=== PATIENT | male | born 1945 | race Caucasian/White ===

== ENCOUNTER 2017-01-11 11:14 | Inpatient (IN) | payer OTHER ==
[2017-01-11] VITALS (9 sets, daily range): BP systolic 114–173; BP diastolic 64–81
[~2017-01-11] VITALS: Ht 175.3 cm; Wt 96.2 kg
[~2017-01-11 11:14] MED LIST: HYDROCHLOROTHIA25 MG PO; IRON325 M1 PO; LOPRESSOR100 M1 PO; OMEPRAZOLE40 M1 PO; ROBITUSSIN AC,T10 ML PO; SIMVASTATIN10 MG PO; TYLENOL REGULA325 MG PO; ZITHROMAX Z-PA250 MG PO
[2017-01-11 12:36] LABS: EOSINOPHIL (%) 0.6 % (0-5); HEMATOCRIT 27.9 % (38.0-50.0); IMMATURE GRANULOCYTE (%) 0.6 % (0.0-0.7); INSTRUMENT ABS NEUTROPHIL CT 2.9 K/uL; LYMPHOCYTE COUNT 0.6 K/uL (1.0-2.8); MCH 30.7 PG (29.0-34.0); MCHC 31.5 G/DL (30.0-36.0); MCV 97.2 FL (86-99); MEAN PLAT.VOLUME 13.7 uM^3 (9.0-12.4); MONOCYTE (%) 1.7 % (3-12); MONOCYTE COUNT 0.1 K/uL (0-0.8); NEUTROPHIL (%) 79.2 % (45-76); NEUTROPHIL COUNT 2.9 K/uL (1.8-6.4); NRBC (%) 0.6 /100 WBC (0-0); RBC DIS.WIDTH-CV 16.4 % (11.8-14.6); RBC DIS.WIDTH-SD 58.8 % (39-53); RED BLOOD COUNT 2.87 M/uL (4.00-5.50); WHITE BLOOD COUNT 3.6 K/uL (4.1-10.2)
[2017-01-11 12:37] LABS: PLATELET COUNT 88 K/uL (156-360)
[2017-01-11 12:39] LABS: INTER. NORMALIZED RATIO 1.2; PROTHROMBIN TIME 13.3 SEC (10.2-12.9)
[2017-01-11 12:42] LABS: PTT 24.5 SEC (25-37)
[2017-01-11 13:31] LABS: CHLORIDE 103 mEq/L (99-109); POTASSIUM 3.7 mEq/L (3.7-5.4); SODIUM 138 mEq/L (136-147)
[2017-01-11 13:33] LABS: GLUCOSE 81 mg/dL (70-99)
[2017-01-11 13:34] LABS: ANION GAP 10 MEQ/L (2-14)
[2017-01-11 13:35] LABS: TOTAL BILIRUBIN 0.7 mg/dL (0.0-1.0)
[2017-01-11 13:36] LABS: ALKALINE PHOSPHATASE 88 IU/L (3-129)
[2017-01-11 13:37] LABS: GFR ESTIMATE (CALCULATED) > 59 mL/min/
[2017-01-11 13:38] LABS: UREA NITROGEN (BUN) 23 mg/dL (9-23)
[2017-01-11] MEDS ORDERED: AMLODIPINE BESYL5 MG PO (16:19)
[2017-01-11] MEDS ORDERED: MICRO-K10 ME2 PO (16:19)
[2017-01-11] MEDS ORDERED: FUROSEMIDE20 MG PO (16:20)
[2017-01-11] MEDS ORDERED: XARELTO20 MG PO (16:21)
[2017-01-11] MEDS ORDERED: CAMPTOSAR40 MG/2 ML IV (16:27)
[2017-01-11] MEDS ORDERED: TAXOTERE20 MG/1 ML IV ×2 (16:27→16:29)
[2017-01-12] VITALS (10 sets, daily range): BP systolic 115–161; BP diastolic 65–78
[2017-01-12 06:29] LABS: HEMATOCRIT 31.8 % (38.0-50.0); MCH 29.8 PG (29.0-34.0); MCHC 32.1 G/DL (30.0-36.0); PLATELET COUNT 64 K/uL (156-360); RBC DIS.WIDTH-CV 16.7 % (11.8-14.6); RBC DIS.WIDTH-SD 55.5 % (39-53); RED BLOOD COUNT 3.42 M/uL (4.00-5.50); WHITE BLOOD COUNT 2.6 K/uL (4.1-10.2)
[2017-01-12 06:38] LABS: CHLORIDE 106 mEq/L (99-109); POTASSIUM 3.8 mEq/L (3.7-5.4); SODIUM 142 mEq/L (136-147)
[2017-01-12 06:40] LABS: GLUCOSE 98 mg/dL (70-99)
[2017-01-12 06:41] LABS: ANION GAP 11 MEQ/L (2-14)
[2017-01-12 06:43] LABS: GFR ESTIMATE (CALCULATED) > 59 mL/min/
[2017-01-12 06:44] LABS: UREA NITROGEN (BUN) 17 mg/dL (9-23)
[2017-01-12 19:49] LABS: HEMATOCRIT 32.8 % (38.0-50.0); MCV 93.4 FL (86-99)
[2017-01-13] VITALS (7 sets, daily range): BP systolic 124–151; BP diastolic 59–79
[2017-01-13 06:15] LABS: HEMATOCRIT 30.9 % (38.0-50.0); MCH 30.5 PG (29.0-34.0); MCHC 32.7 G/DL (30.0-36.0); MCV 93.4 FL (86-99); MEAN PLAT.VOLUME 14.4 uM^3 (9.0-12.4); PLATELET COUNT 52 K/uL (156-360); RBC DIS.WIDTH-CV 16.6 % (11.8-14.6); RBC DIS.WIDTH-SD 56.5 % (39-53); RED BLOOD COUNT 3.31 M/uL (4.00-5.50)
[2017-01-13 06:39] LABS: ANION GAP 8 MEQ/L (2-14); CHLORIDE 105 MEQ/L (99-109); GFR ESTIMATE (CALCULATED) > 59 mL/min/; GLUCOSE 100 mg/dL (70-99); POTASSIUM 3.7 MEQ/L (3.7-5.4); SAMPLE HEMOLYSIS CHECK 0; SAMPLE ICTERIC CHECK 0; SAMPLE LIPEMIA CHECK 0; SODIUM 139 MEQ/L (136-147); UREA NITROGEN (BUN) 16 mg/dL (9-23)
[2017-01-13 06:46] LABS: ABS NEUTROPHIL COUNT 0.8; ATYPICAL LYMPHOCYTE 7.9 %; BAND NEUTROPHILS 0.9 % (0-8.0); EOSINOPHIL ABS CT 0; EOSINOPHILS 0.9 % (0-5.0); INSTRUMENT ABS NEUTROPHIL CT 0.7 K/uL; LYMPHOCYTES 18.6 % (15.0-45.0); MYELOCYTES 0.9 %; NUCLEATED RBC'S 0.9
[2017-01-13 07:00] LABS: WHITE BLOOD COUNT 1.1 K/uL (4.1-10.2)
[2017-01-13 12:40] LABS: ADD MIUA? NO; BILIRUBIN NEGATIVE; BLOOD NEGATIVE; COLOR YELLOW ((YELLOW)); GLUCOSE (STRIP) NEGATIVE; KETONES NEGATIVE; LEUKOCYTES NEGATIVE; NITRITE NEGATIVE; PROTEIN (STRIP) NEGATIVE; SPECIFIC GRAVITY 1.014 (1.000-1.030); UCUL ADDED? NO; UROBILINOGEN 0.2 MG/DL (0.2-1.0)
[2017-01-13 20:00] LABS: MCV 92.3 FL (86-99)
[2017-01-14 04:05] VITALS: BP 128/60
[2017-01-14 06:40] VITALS: BP 147/71
[2017-01-14 09:13] LABS: HEMATOCRIT 31.8 % (38.0-50.0); MCH 29.6 PG (29.0-34.0); MCHC 31.8 G/DL (30.0-36.0); MCV 93.3 FL (86-99); MEAN PLAT.VOLUME 12.7 uM^3 (9.0-12.4); PLATELET COUNT 58 K/uL (156-360); RBC DIS.WIDTH-CV 15.9 % (11.8-14.6); RBC DIS.WIDTH-SD 54.4 % (39-53); RED BLOOD COUNT 3.41 M/uL (4.00-5.50)
[2017-01-14 09:30] LABS: WHITE BLOOD COUNT 1.4 K/uL (4.1-10.2)
[2017-01-14] MEDS ORDERED: XARELTO20 MG PO (10:43)
[2017-01-14 11:10] VITALS: BP 137/75
== END 2017-01-14 12:38 | disposition home or self-care (01) | DRG 378 ==
LOC: EME 11:14 → EDOF 15:11 → 5EAST 15:11 → ENRESERV 15:13 → 5EAST 17:48 → ENPENDDIS 01-14 → 5EAST 01-14 12:38
PROVIDERS: Emergency Medicine; Internal Medicine; Internal Medicine Gastroenterology
DX: K92.2 Gastrointestinal hemorrhage, unspecified (principal); T45.515A Adverse effect of anticoagulants, initial encounter; I10 Essential (primary) hypertension; R79.1 Abnormal coagulation profile; K21.9 Gastro-esophageal reflux disease without esophagitis; D61.818 Other pancytopenia; D63.8 Anemia in other chronic diseases classified elsewhere; R50.81 Fever presenting with conditions classified elsewhere; I82.C11 Acute embolism and thrombosis of right internal jugular vein; T45.1X5A Adverse effect of antineoplastic and immunosuppressive drugs, initial encounter; K55.9 Vascular disorder of intestine, unspecified; K64.8 Other hemorrhoids; K64.4 Residual hemorrhoidal skin tags; K40.90 Unilateral inguinal hernia, without obstruction or gangrene, not specified as recurrent; K42.9 Umbilical hernia without obstruction or gangrene; Q27.33 Arteriovenous malformation of digestive system vessel; Z79.01 Long term (current) use of anticoagulants; Z85.01 Personal history of malignant neoplasm of esophagus; Z87.891 Personal history of nicotine dependence; Z86.718 Personal history of other venous thrombosis and embolism; Z85.028 Personal history of other malignant neoplasm of stomach
CPT/HCPCS: 71010; 74177; 80048; 80053; 80069; 81003; 83605; 83735; 85014; 85018; 85025; 85025 91; 85027; 85610; 85730; 86850; 86900; 86901; 86920; 87040; 99202; 99281; 99285; C9113; J1200; J2250; J3010; J7030; P9016; P9017

== ENCOUNTER 2017-02-05 15:26 | Inpatient (IN) | payer OTHER ==
[~2017-02-05] VITALS: Ht 175.3 cm; Wt 99.0 kg
[~2017-02-05 15:26] MED LIST changes: +AMLODIPINE BESYL5 MG PO; +CAMPTOSAR40 MG/2 ML IV; +FUROSEMIDE20 MG PO; +MICRO-K10 ME2 PO; +TAXOTERE20 MG/1 ML IV; +XARELTO20 MG PO
[2017-02-05 16:30] LABS: HEMATOCRIT 30.9 % (38.0-50.0); MCH 29.6 PG (29.0-34.0); MCHC 32.4 G/DL (30.0-36.0); MCV 91.4 FL (86-99); MEAN PLAT.VOLUME 12.4 uM^3 (9.0-12.4); NRBC (%) 0.5 /100 WBC (0-0); PLATELET COUNT 94 K/uL (156-360); RBC DIS.WIDTH-CV 17.3 % (11.8-14.6); RBC DIS.WIDTH-SD 57.5 % (39-53); RED BLOOD COUNT 3.38 M/uL (4.00-5.50); WHITE BLOOD COUNT 5.9 K/uL (4.1-10.2)
[2017-02-05 16:46] LABS: CHLORIDE 100 mEq/L (99-109); POTASSIUM 3.7 mEq/L (3.7-5.4); SODIUM 136 mEq/L (136-147)
[2017-02-05 16:49] LABS: ANION GAP 10 MEQ/L (2-14)
[2017-02-05 16:50] LABS: GLUCOSE 109 mg/dL (70-99)
[2017-02-05 16:51] LABS: GFR ESTIMATE (CALCULATED) > 59 mL/min/ (58.99-99999)
[2017-02-05 16:52] LABS: UREA NITROGEN (BUN) 19 mg/dL (9-23)
[2017-02-05 17:26] LABS: BASE EXCESS 4.9 mEq/L (-3 to +3); BICARBONATE 27.6 mEq/L (22-26); CARBOXY HGB 1.5 % (0-5); COMMENTS - BLOOD GASES C+; DEVICE NC; METHEMOGLOBIN 0.8 % (0-1.5); O2 FLOW 2 L/MIN; PCO2 33 mm Hg (35-45); PO2 74 mm Hg (80-100); SITE LR; TOTAL RESP RATE 20 resp/min; pH 7.53 (7.35-7.45)
[2017-02-05 17:32] LABS: TOTAL BILIRUBIN 0.4 mg/dL (0.0-1.0)
[2017-02-05 17:33] LABS: ALKALINE PHOSPHATASE 134 IU/L (3-129)
[2017-02-05 17:35] LABS: DIRECT BILIRUBIN 0.2 mg/dL (0.0-0.3)
[2017-02-05 18:00] LABS: TROP-I INTERPRETATION NEGATIVE; TROPONIN-I < 0.01 ng/mL (0.0-0.30)
[2017-02-05 18:33] LABS: ADD MIUA? NO; BILIRUBIN NEGATIVE; BLOOD NEGATIVE; COLOR YELLOW ((YELLOW)); GLUCOSE (STRIP) NEGATIVE; KETONES NEGATIVE; LEUKOCYTES NEGATIVE; NITRITE NEGATIVE; PROTEIN (STRIP) NEGATIVE; SPECIFIC GRAVITY 1.012 (1.000-1.030); UCUL ADDED? NO; UROBILINOGEN 0.2 MG/DL (0.2-1.0)
[2017-02-05] MEDS ORDERED: DOXYCYCLINE MO100 M1 PO (21:30)
[2017-02-06] MEDS ORDERED: RANITIDINE HCL150 MG PO (00:26)
[2017-02-06] MEDS ORDERED: DECADRON4 MG PO (00:28)
[2017-02-06] MEDS ORDERED: DIPHENHYDRAMINE50 M1 PO (00:33)
[2017-02-06 03:30] VITALS: BP 152/73
[2017-02-06 08:00] VITALS: BP 141/66
[2017-02-06 11:28] VITALS: BP 113/70
[2017-02-06 15:44] VITALS: BP 153/68
[2017-02-06 19:30] VITALS: BP 124/60
[2017-02-06 23:50] VITALS: BP 139/72
[2017-02-07 03:52] VITALS: BP 134/81
[2017-02-07 05:46] LABS: GFR ESTIMATE (CALCULATED) > 59 mL/min/ (58.99-99999)
[2017-02-07 08:23] LABS: INTERNAL CONTROL VALID? YES
[2017-02-07 09:50] VITALS: BP 135/69
[2017-02-07 11:48] VITALS: BP 132/60
[2017-02-07 15:55] VITALS: BP 130/61
[2017-02-07 20:00] VITALS: BP 133/66
[2017-02-07 21:10] LABS: TROP-I INTERPRETATION NEGATIVE; TROPONIN-I < 0.01 ng/mL (0.0-0.30)
[2017-02-07 23:22] VITALS: BP 115/58
[2017-02-08 04:03] VITALS: BP 110/66
[2017-02-08 08:06] VITALS: BP 135/78
[2017-02-08 08:15] LABS: HEMATOCRIT 26.3 % (38.0-50.0); MCH 29.3 PG (29.0-34.0); MCHC 31.6 G/DL (30.0-36.0); MCV 92.9 FL (86-99); MEAN PLAT.VOLUME 13.2 uM^3 (9.0-12.4); PLATELET COUNT 84 K/uL (156-360); RBC DIS.WIDTH-CV 17.5 % (11.8-14.6); RED BLOOD COUNT 2.83 M/uL (4.00-5.50); WHITE BLOOD COUNT 5.5 K/uL (4.1-10.2)
[2017-02-08 08:19] LABS: ANION GAP 9 MEQ/L (2-14); CHLORIDE 102 MEQ/L (99-109); SAMPLE HEMOLYSIS CHECK 0; SAMPLE ICTERIC CHECK 0; SAMPLE LIPEMIA CHECK 0; SODIUM 134 MEQ/L (136-147)
[2017-02-08 08:25] LABS: GFR ESTIMATE (CALCULATED) > 59 mL/min/ (58.99-99999); GLUCOSE 105 mg/dL (70-99); UREA NITROGEN (BUN) 12 mg/dL (9-23)
[2017-02-08 10:30] VITALS: BP 139/71
[2017-02-08 11:33] VITALS: BP 139/71
[2017-02-08 18:11] VITALS: BP 139/66
[2017-02-08 18:18] LABS: METH RESISTANT S AUREUS PCR NEGATIVE (NEGATIVE)
[2017-02-08 18:24] LABS: PROBE CHECK PASS; SPECIMEN PROCESSING CONTROL PASS
[2017-02-08 20:40] VITALS: BP 120/56
[2017-02-09] VITALS (7 sets, daily range): BP systolic 101–144; BP diastolic 54–65
[2017-02-09 06:15] LABS: EOSINOPHIL (%) 0.5 % (0-5); HEMATOCRIT 23.6 % (38.0-50.0); IMMATURE GRANULOCYTE (%) 0.9 % (0.0-0.7); IMMATURE GRANULOCYTE COUNT 0.1 K/uL; INSTRUMENT ABS NEUTROPHIL CT 6.2 K/uL; LYMPHOCYTE COUNT 0.6 K/uL (1.0-2.8); MCH 28.7 PG (29.0-34.0); MCHC 31.8 G/DL (30.0-36.0); MCV 90.4 FL (86-99); MEAN PLAT.VOLUME 13.1 uM^3 (9.0-12.4); MONOCYTE (%) 6.5 % (3-12); MONOCYTE COUNT 0.5 K/uL (0-0.8); NEUTROPHIL (%) 83.6 % (45-76); NEUTROPHIL COUNT 6.2 K/uL (1.8-6.4); RBC DIS.WIDTH-CV 17.4 % (11.8-14.6); RBC DIS.WIDTH-SD 57.1 % (39-53); RED BLOOD COUNT 2.61 M/uL (4.00-5.50); WHITE BLOOD COUNT 7.4 K/uL (4.1-10.2)
[2017-02-09 06:16] LABS: PLATELET COUNT 113 K/uL (156-360)
[2017-02-09 07:12] LABS: ANION GAP 10 MEQ/L (2-14); CHLORIDE 102 MEQ/L (99-109); GFR ESTIMATE (CALCULATED) > 59 mL/min/ (58.99-99999); GLUCOSE 94 mg/dL (70-99); POTASSIUM 3.2 MEQ/L (3.7-5.4); SAMPLE HEMOLYSIS CHECK 0; SAMPLE ICTERIC CHECK 0; SAMPLE LIPEMIA CHECK 0; SODIUM 134 MEQ/L (136-147); UREA NITROGEN (BUN) 11 mg/dL (9-23)
[2017-02-09 07:16] LABS: VANCOMYCIN, TROUGH 11.9 MCG/ML (10-20)
[2017-02-09 10:50] LABS: INTERNAL CONTROL VALID? YES
[2017-02-09 17:37] LABS: HEMATOCRIT 25.3 % (38.0-50.0); MCV 88.5 FL (86-99)
[2017-02-10 04:11] VITALS: BP 100/55
[2017-02-10 05:20] LABS: HEMATOCRIT 25.8 % (38.0-50.0); MCH 28.1 PG (29.0-34.0); MCHC 31.8 G/DL (30.0-36.0); MCV 88.4 FL (86-99); MEAN PLAT.VOLUME 13.2 uM^3 (9.0-12.4); PLATELET COUNT 128 K/uL (156-360); RBC DIS.WIDTH-CV 17.2 % (11.8-14.6); RBC DIS.WIDTH-SD 55.6 % (39-53); RED BLOOD COUNT 2.92 M/uL (4.00-5.50); WHITE BLOOD COUNT 10.1 K/uL (4.1-10.2)
[2017-02-10 06:03] LABS: ANION GAP 13 MEQ/L (2-14); CHLORIDE 99 MEQ/L (99-109); GFR ESTIMATE (CALCULATED) > 59 mL/min/ (58.99-99999); POTASSIUM 3.2 MEQ/L (3.7-5.4); SAMPLE HEMOLYSIS CHECK 0; SAMPLE ICTERIC CHECK 0; SAMPLE LIPEMIA CHECK 0; SODIUM 137 MEQ/L (136-147); UREA NITROGEN (BUN) 14 mg/dL (9-23)
[2017-02-10 06:06] LABS: GLUCOSE 177 mg/dL (70-99)
[2017-02-10 08:41] VITALS: BP 121/64
[2017-02-10 11:59] VITALS: BP 103/66
[2017-02-10 16:14] VITALS: BP 135/65
[2017-02-10 19:52] VITALS: BP 126/61
[2017-02-11] VITALS (7 sets, daily range): BP systolic 111–147; BP diastolic 61–76
[2017-02-11 07:42] LABS: ANION GAP 14 MEQ/L (2-14); CHLORIDE 100 MEQ/L (99-109); GFR ESTIMATE (CALCULATED) > 59 mL/min/ (58.99-99999); GLUCOSE 143 mg/dL (70-99); POTASSIUM 3.2 MEQ/L (3.7-5.4); SAMPLE HEMOLYSIS CHECK 0; SAMPLE ICTERIC CHECK 0; SAMPLE LIPEMIA CHECK 0; SODIUM 138 MEQ/L (136-147)
[2017-02-11 07:46] LABS: UREA NITROGEN (BUN) 25 mg/dL (9-23)
[2017-02-11 08:49] LABS: EOSINOPHIL (%) 0 % (0-5); HEMATOCRIT 24.3 % (38.0-50.0); IMMATURE GRANULOCYTE (%) 0.7 % (0.0-0.7); IMMATURE GRANULOCYTE COUNT 0.1 K/uL; INSTRUMENT ABS NEUTROPHIL CT 10.7 K/uL; LYMPHOCYTE COUNT 0.5 K/uL (1.0-2.8); MCH 29.5 PG (29.0-34.0); MCHC 33.3 G/DL (30.0-36.0); MCV 88.4 FL (86-99); MEAN PLAT.VOLUME 13.6 uM^3 (9.0-12.4); MONOCYTE (%) 3.2 % (3-12); MONOCYTE COUNT 0.4 K/uL (0-0.8); NEUTROPHIL (%) 92.1 % (45-76); NEUTROPHIL COUNT 10.7 K/uL (1.8-6.4); PLATELET COUNT 143 K/uL (156-360); RBC DIS.WIDTH-CV 17.3 % (11.8-14.6); RBC DIS.WIDTH-SD 55.7 % (39-53); RED BLOOD COUNT 2.75 M/uL (4.00-5.50); WHITE BLOOD COUNT 11.6 K/uL (4.1-10.2)
[2017-02-12] VITALS (8 sets, daily range): BP systolic 105–136; BP diastolic 62–77
[2017-02-12 05:36] LABS: EOSINOPHIL (%) 0 % (0-5); HEMATOCRIT 22.8 % (38.0-50.0); IMMATURE GRANULOCYTE (%) 1.3 % (0.0-0.7); IMMATURE GRANULOCYTE COUNT 0.2 K/uL; INSTRUMENT ABS NEUTROPHIL CT 10.4 K/uL; LYMPHOCYTE COUNT 0.4 K/uL (1.0-2.8); MCH 28.8 PG (29.0-34.0); MCHC 32.5 G/DL (30.0-36.0); MCV 88.7 FL (86-99); MEAN PLAT.VOLUME 13.6 uM^3 (9.0-12.4); MONOCYTE (%) 4.9 % (3-12); MONOCYTE COUNT 0.6 K/uL (0-0.8); NEUTROPHIL (%) 90.2 % (45-76); NEUTROPHIL COUNT 10.4 K/uL (1.8-6.4); NRBC (%) 0.3 /100 WBC (0-0); PLATELET COUNT 151 K/uL (156-360); RBC DIS.WIDTH-CV 17.4 % (11.8-14.6); RBC DIS.WIDTH-SD 55.8 % (39-53); RED BLOOD COUNT 2.57 M/uL (4.00-5.50); WHITE BLOOD COUNT 11.5 K/uL (4.1-10.2)
[2017-02-12 06:34] LABS: ANION GAP 12 MEQ/L (2-14); CHLORIDE 101 MEQ/L (99-109); GFR ESTIMATE (CALCULATED) > 59 mL/min/ (58.99-99999); GLUCOSE 129 mg/dL (70-99); POTASSIUM 2.8 MEQ/L (3.7-5.4); SAMPLE HEMOLYSIS CHECK 0; SAMPLE ICTERIC CHECK 0; SAMPLE LIPEMIA CHECK 0; SODIUM 138 MEQ/L (136-147); UREA NITROGEN (BUN) 28 mg/dL (9-23)
[2017-02-13] VITALS (12 sets, daily range): BP systolic 131–155; BP diastolic 66–79
[2017-02-13 07:24] LABS: EOSINOPHIL (%) 0 % (0-5); HEMATOCRIT 30.2 % (38.0-50.0); IMMATURE GRANULOCYTE (%) 1.9 % (0.0-0.7); IMMATURE GRANULOCYTE COUNT 0.2 K/uL; INSTRUMENT ABS NEUTROPHIL CT 9.6 K/uL; LYMPHOCYTE COUNT 0.4 K/uL (1.0-2.8); MCH 29.2 PG (29.0-34.0); MCHC 33.1 G/DL (30.0-36.0); MEAN PLAT.VOLUME 13.3 uM^3 (9.0-12.4); MONOCYTE (%) 4.3 % (3-12); MONOCYTE COUNT 0.5 K/uL (0-0.8); NEUTROPHIL (%) 89.5 % (45-76); NEUTROPHIL COUNT 9.6 K/uL (1.8-6.4); NRBC (%) 0.7 /100 WBC (0-0); PLATELET COUNT 184 K/uL (156-360); RBC DIS.WIDTH-CV 18.3 % (11.8-14.6); RBC DIS.WIDTH-SD 57.8 % (39-53); RED BLOOD COUNT 3.43 M/uL (4.00-5.50); WHITE BLOOD COUNT 10.7 K/uL (4.1-10.2)
[2017-02-13 07:48] LABS: ANION GAP 11 MEQ/L (2-14); CHLORIDE 103 MEQ/L (99-109); GFR ESTIMATE (CALCULATED) > 59 mL/min/ (58.99-99999); GLUCOSE 121 mg/dL (70-99); SAMPLE HEMOLYSIS CHECK 0; SAMPLE ICTERIC CHECK 0; SAMPLE LIPEMIA CHECK 0; SODIUM 140 MEQ/L (136-147); UREA NITROGEN (BUN) 27 mg/dL (9-23)
[2017-02-13 07:49] LABS: POTASSIUM 3.8 MEQ/L (3.7-5.4)
[2017-02-13 15:01] LABS: C DIFF TOXIN NEGATIVE (NEGATIVE); PROBE CHECK PASS; SPECIMEN PROCESSING CONTROL PASS
[2017-02-14 04:00] VITALS: BP 130/63
[2017-02-14 05:34] LABS: HEMATOCRIT 28.7 % (38.0-50.0); MCH 28.7 PG (29.0-34.0); MCHC 32.4 G/DL (30.0-36.0); MCV 88.6 FL (86-99); MEAN PLAT.VOLUME 13.3 uM^3 (9.0-12.4); NRBC (%) 0.9 /100 WBC (0-0); PLATELET COUNT 177 K/uL (156-360); RBC DIS.WIDTH-CV 19.1 % (11.8-14.6); RBC DIS.WIDTH-SD 59.6 % (39-53); RED BLOOD COUNT 3.24 M/uL (4.00-5.50); WHITE BLOOD COUNT 8.7 K/uL (4.1-10.2)
[2017-02-14 06:01] LABS: ANION GAP 11 MEQ/L (2-14); CHLORIDE 106 MEQ/L (99-109); GFR ESTIMATE (CALCULATED) > 59 mL/min/ (58.99-99999); GLUCOSE 120 mg/dL (70-99); SAMPLE HEMOLYSIS CHECK 0; SAMPLE ICTERIC CHECK 0; SAMPLE LIPEMIA CHECK 0; SODIUM 141 MEQ/L (136-147); UREA NITROGEN (BUN) 27 mg/dL (9-23)
[2017-02-14 08:02] VITALS: BP 132/63
[2017-02-14 11:41] VITALS: BP 133/63
[2017-02-14 16:34] VITALS: BP 143/70
[2017-02-14 16:35] LABS: Mycelial Phase Antibody <1:8 (<1:8); Yeast Phase Anitbody <1:8 (<1:8)
[2017-02-14 20:00] VITALS: BP 155/78
[2017-02-14 23:55] VITALS: BP 151/82
[2017-02-15 04:00] VITALS: BP 133/60
[2017-02-15 07:08] VITALS: BP 160/82
[2017-02-15 12:02] VITALS: BP 149/72
[2017-02-15 16:44] VITALS: BP 166/83
[2017-02-15 20:00] VITALS: BP 179/90
[2017-02-15 23:30] VITALS: BP 165/86
[2017-02-16 03:13] VITALS: BP 165/87
[2017-02-16 07:05] VITALS: BP 148/73
[2017-02-16 11:15] LABS: EOSINOPHIL (%) 0.1 % (0-5); HEMATOCRIT 34.3 % (38.0-50.0); IMMATURE GRANULOCYTE (%) 1.8 % (0.0-0.7); IMMATURE GRANULOCYTE COUNT 0.2 K/uL; INSTRUMENT ABS NEUTROPHIL CT 10.2 K/uL; LYMPHOCYTE COUNT 0.4 K/uL (1.0-2.8); MCH 28.8 PG (29.0-34.0); MCHC 32.4 G/DL (30.0-36.0); MCV 89.1 FL (86-99); MEAN PLAT.VOLUME 12.6 uM^3 (9.0-12.4); MONOCYTE (%) 9.9 % (3-12); MONOCYTE COUNT 1.2 K/uL (0-0.8); NEUTROPHIL (%) 84.5 % (45-76); NEUTROPHIL COUNT 10.2 K/uL (1.8-6.4); NRBC (%) 0.2 /100 WBC (0-0); PLATELET COUNT 213 K/uL (156-360); RBC DIS.WIDTH-CV 19.6 % (11.8-14.6); RBC DIS.WIDTH-SD 60.2 % (39-53); RED BLOOD COUNT 3.85 M/uL (4.00-5.50)
[2017-02-16 11:49] VITALS: BP 138/75
[2017-02-16] MEDS ORDERED: VENTOLIN HFA18 GM IH (15:37)
[2017-02-16] MEDS ORDERED: SPIRIVA RESPIMAT4 GM IH (15:37)
== END 2017-02-16 16:14 | disposition home or self-care (01) | DRG 871 ==
LOC: EME 15:26 → EDOF 02-06 01:21 → ENRESERV 02-06 01:28 → CANRESERV 02-06 01:28 → ENRESERV 02-06 01:35 → CANRESERV 02-06 01:35 → ENRESERV 02-06 01:54 → 5WEST 02-06 03:18 → ENRESERV 02-08 07:12 → 4EAST 02-08 09:57
PROVIDERS: Emergency Medicine; Hospitalist; Internal Medicine; Internal Medicine Infectious Disease; Nurse Practitioner Adult Health; Physician Assistant Medical; Student in an Organized Health Care Education/Training Program
DX: A41.9 Sepsis, unspecified organism (principal); J96.01 Acute respiratory failure with hypoxia; D61.810 Antineoplastic chemotherapy induced pancytopenia; K92.2 Gastrointestinal hemorrhage, unspecified; I11.0 Hypertensive heart disease with heart failure; E86.0 Dehydration; I50.9 Heart failure, unspecified; J15.9 Unspecified bacterial pneumonia; R00.0 Tachycardia, unspecified; I35.0 Nonrheumatic aortic (valve) stenosis; F17.200 Nicotine dependence, unspecified, uncomplicated; R19.5 Other fecal abnormalities; E04.2 Nontoxic multinodular goiter; R19.7 Diarrhea, unspecified; C15.9 Malignant neoplasm of esophagus, unspecified; R59.1 Generalized enlarged lymph nodes; T45.1X5A Adverse effect of antineoplastic and immunosuppressive drugs, initial encounter; K64.9 Unspecified hemorrhoids; E87.6 Hypokalemia; Z68.29 Body mass index [BMI] 29.0-29.9, adult; Z90.49 Acquired absence of other specified parts of digestive tract; Z79.01 Long term (current) use of anticoagulants; Z80.9 Family history of malignant neoplasm, unspecified; Z92.21 Personal history of antineoplastic chemotherapy; Z86.718 Personal history of other venous thrombosis and embolism; Z79.899 Other long term (current) drug therapy
CPT/HCPCS: 36415; 36600; 70491; 71010; 71020; 71250; 71275; 80048; 80076; 80202; 81003; 82272; 82565; 82803; 83605; 83880; 84145 90; 84443; 84484; 85014; 85018; 85025; 85027; 86698 90; 86850; 86900; 86901; 86920; 87040; 87070; 87205; 87385 90; 87449; 87493; 87502; 87641; 87899; 93005; 93306; 94640; 94640 76; 94799; 99202; 99281; 99285; C9113; J0692; J0696; J1644; J1940; J2543; J2920; J2930; J3370; J3480; J7030; J7050; J7512; P9016

== ENCOUNTER 2017-05-18 13:41 | Inpatient (IN) | payer OTHER ==
[~2017-05-18] VITALS: Ht 175.3 cm; Wt 98.2 kg
[~2017-05-18 13:41] MED LIST changes: +DECADRON4 MG PO; +DIPHENHYDRAMINE50 M1 PO; +DOXYCYCLINE MO100 M1 PO; +RANITIDINE HCL150 MG PO; +SPIRIVA RESPIMAT4 GM IH; +VENTOLIN HFA18 GM IH
[2017-05-18] MEDS ORDERED: NEURONTIN300 MG PO (14:04)
[2017-05-18 14:34] LABS: HEMATOCRIT 31.5 % (38.0-50.0); HEMOGLOBIN 10.3 G/DL (12.5-16.6); MCH 29.3 PG (29.0-34.0); MCHC 32.7 G/DL (30.0-36.0); PLATELET COUNT 215 K/uL (156-360); RBC DIS.WIDTH-CV 15.2 % (11.8-14.6); RBC DIS.WIDTH-SD 49.2 % (39-53); RED BLOOD COUNT 3.51 M/uL (4.00-5.50); WHITE BLOOD COUNT 11.5 K/uL (4.1-10.2)
[2017-05-18 14:37] LABS: MCV 89.7 FL (86-99)
[2017-05-18 14:48] LABS: CHLORIDE 100 mEq/L (99-109); POTASSIUM 3.1 mEq/L (3.7-5.4); SODIUM 136 mEq/L (136-147)
[2017-05-18 14:49] LABS: GLUCOSE 120 mg/dL (70-99)
[2017-05-18 14:53] LABS: CREATININE 1.5 mg/dL (0.6-1.3); GFR ESTIMATE (CALCULATED) 49 mL/min/ (58.99-99999)
[2017-05-18 14:54] LABS: UREA NITROGEN (BUN) 26 mg/dL (9-23)
[2017-05-18 14:56] LABS: TROP-I INTERPRETATION POSITIVE
[2017-05-18 15:00] LABS: TROPONIN-I 4.93 ng/mL (0.0-0.30)
[2017-05-18] MEDS ORDERED: KEYTRUDA IV (16:24)
[2017-05-18 18:44] LABS: INTER. NORMALIZED RATIO 1.3
[2017-05-18 18:47] LABS: PTT 25.4 SEC (25-37)
[2017-05-18 20:32] LABS: APPEARANCE CLEAR ((CLEAR)); BILIRUBIN NEGATIVE; BLOOD NEGATIVE; COLOR YELLOW ((YELLOW)); GLUCOSE (STRIP) NEGATIVE; KETONES NEGATIVE; LEUKOCYTES NEGATIVE; NITRITE NEGATIVE; PROTEIN (STRIP) 30; SPECIFIC GRAVITY 1.017 (1.000-1.030); UCUL ADDED? NO; UROBILINOGEN 0.2 MG/DL (0.2-1.0)
[2017-05-18 22:08] LABS: TROP-I INTERPRETATION POSITIVE
[2017-05-18 22:09] LABS: TROPONIN-I 9.85 ng/mL (0.0-0.30)
[2017-05-18 22:30] VITALS: BP 65/53
[2017-05-18 22:36] VITALS: BP 77/54
[2017-05-18 23:00] VITALS: BP 72/49
[2017-05-18 23:11] LABS: BASE EXCESS -8.5 mEq/L (-3 to +3); CARBOXY HGB 1.9 % (0-5); METHEMOGLOBIN 1.6 % (0-1.5); PO2 67 mm Hg (80-100)
[2017-05-18 23:12] LABS: BICARBONATE 15.1 mEq/L (22-26); COMMENTS - BLOOD GASES C+; DEVICE NC; O2 FLOW 4 L/MIN; PCO2 25 mm Hg (35-45); SITE LB; TOTAL RESP RATE 22 resp/min; pH 7.39 (7.35-7.45)
[2017-05-18 23:30] VITALS: BP 74/61
[2017-05-18 23:38] LABS: CHLORIDE 102 mEq/L (99-109); POTASSIUM 3.7 mEq/L (3.7-5.4); SODIUM 133 mEq/L (136-147)
[2017-05-18 23:40] LABS: GLUCOSE 132 mg/dL (70-99)
[2017-05-18 23:44] LABS: GFR ESTIMATE (CALCULATED) 35 mL/min/ (58.99-99999)
[2017-05-18 23:45] LABS: UREA NITROGEN (BUN) 24 mg/dL (9-23)
[2017-05-19] VITALS (24 sets, daily range): BP systolic 74–150; BP diastolic 48–136
[2017-05-19 06:49] LABS: ALBUMIN 2.9 G/DL (3.2-4.8); ALKALINE PHOSPHATASE 249 IU/L (3-129); CHLORIDE 102 MEQ/L (99-109); CREATININE 2.4 MG/DL (0.6-1.3); GFR ESTIMATE (CALCULATED) 28 mL/min/ (58.99-99999); GLUCOSE 125 mg/dL (70-99); POTASSIUM 4.2 MEQ/L (3.7-5.4); SODIUM 135 MEQ/L (136-147); TOTAL BILIRUBIN 0.6 MG/DL (0.0-1.0); TOTAL PROTEIN 5.4 G/DL (6.4-8.3); UREA NITROGEN (BUN) 26 mg/dL (9-23)
[2017-05-19 06:54] LABS: ALT (GPT) 80 IU/L (3-49); AST (GOT) 132 IU/L (2-34)
[2017-05-19 22:34] LABS: TROP-I INTERPRETATION POSITIVE; TROPONIN-I 4.35 ng/mL (0.0-0.30)
[2017-05-20] VITALS (19 sets, daily range): BP systolic 80–121; BP diastolic 51–76
[2017-05-21] VITALS (11 sets, daily range): BP systolic 91–120; BP diastolic 56–89
[2017-05-21 09:51] LABS: BASOPHIL (%) 0.2 % (0-1); EOSINOPHIL (%) 0.8 % (0-5); EOSINOPHIL COUNT 0.1 K/uL (0-0.3); HEMATOCRIT 42.5 % (38.0-50.0); HEMOGLOBIN 12.4 G/DL (12.5-16.6); IMMATURE GRANULOCYTE (%) 0.6 % (0.0-0.7); LYMPHOCYTE (%) 4.5 % (15-42); LYMPHOCYTE COUNT 0.5 K/uL (1.0-2.8); MCH 28.2 PG (29.0-34.0); MCHC 29.2 G/DL (30.0-36.0); MCV 96.6 FL (86-99); MONOCYTE (%) 4.4 % (3-12); MONOCYTE COUNT 0.5 K/uL (0-0.8); NEUTROPHIL (%) 89.5 % (45-76); NEUTROPHIL COUNT 10.7 K/uL (1.8-6.4); NRBC (%) 0.2 /100 WBC (0-0); PLATELET COUNT 151 K/uL (156-360); RBC DIS.WIDTH-CV 15.6 % (11.8-14.6); RBC DIS.WIDTH-SD 54.7 % (39-53)
[2017-05-21 10:07] LABS: CHLORIDE 100 MEQ/L (99-109); GLUCOSE 122 mg/dL (70-99); SODIUM 132 MEQ/L (136-147); UREA NITROGEN (BUN) 32 mg/dL (9-23)
[2017-05-21 10:28] LABS: CREATININE 1.8 MG/DL (0.6-1.3); GFR ESTIMATE (CALCULATED) 40 mL/min/ (58.99-99999); POTASSIUM 3.3 MEQ/L (3.7-5.4)
[2017-05-21 11:42] LABS: C DIFF TOXIN NEGATIVE (NEGATIVE)
[2017-05-22] VITALS: BP 88/52
[2017-05-22 02:00] VITALS: BP 105/48
[2017-05-22 04:00] VITALS: BP 106/63
[2017-05-22 04:31] LABS: CHLORIDE 107 mEq/L (99-109); HEMOGLOBIN 9.3 G/DL (12.5-16.6); MCH 29.2 PG (29.0-34.0); MCHC 32.1 G/DL (30.0-36.0); MCV 90.9 FL (86-99); PLATELET COUNT 226 K/uL (156-360); POTASSIUM 3.7 mEq/L (3.7-5.4); RBC DIS.WIDTH-CV 15.4 % (11.8-14.6); RBC DIS.WIDTH-SD 51.2 % (39-53); RED BLOOD COUNT 3.19 M/uL (4.00-5.50); WHITE BLOOD COUNT 11.6 K/uL (4.1-10.2)
[2017-05-22 04:32] LABS: GLUCOSE 113 mg/dL (70-99)
[2017-05-22 04:34] LABS: SODIUM 140 mEq/L (136-147)
[2017-05-22 04:36] LABS: CREATININE 1.5 mg/dL (0.6-1.3); GFR ESTIMATE (CALCULATED) 49 mL/min/ (58.99-99999)
[2017-05-22 04:37] LABS: UREA NITROGEN (BUN) 31 mg/dL (9-23)
[2017-05-22 07:00] VITALS: BP 132/82
[2017-05-22 07:01] VITALS: BP 132/82
[2017-05-22 09:01] VITALS: BP 117/77
[2017-05-22] MEDS ORDERED: LORAZEPAM0.5 MG PO (09:02)
[2017-05-22] MEDS ORDERED: HYOSCYAMINE0.125 M2 PO (09:02)
[2017-05-22] MEDS ORDERED: MORPHINE CON20 MG/M1 PO (09:02)
[2017-05-22] MEDS ORDERED: ASPIR-LOW81 MG PO (10:54)
[2017-05-22] MEDS ORDERED: GABAPENTIN100 MG PO (10:54)
[2017-05-22] MEDS ORDERED: LEVAQUIN750 MG PO (10:54)
[2017-05-22] MEDS ORDERED: PREDNISONE10 MG PO (10:54)
[2017-05-22] MEDS ORDERED: LOPRESSOR25 MG PO (10:54)
== END 2017-05-22 12:49 | disposition hospice, home (50) | DRG 871 ==
LOC: EME 13:41 → 4WEST 17:29 → EDOF 17:29 → ENRESERV 17:31 → 4WEST 22:25 → ENRESERV 05-20 13:54 → CANRESERV 05-20 13:58 → 4WEST 05-20 15:25
PROVIDERS: Emergency Medicine; Hospitalist; Internal Medicine; Internal Medicine Pulmonary Disease
DX: A41.9 Sepsis, unspecified organism (principal); R65.21 Severe sepsis with septic shock; J18.9 Pneumonia, unspecified organism; N17.9 Acute kidney failure, unspecified; I21.4 Non-ST elevation (NSTEMI) myocardial infarction; J90 Pleural effusion, not elsewhere classified; I48.92 Unspecified atrial flutter; C15.9 Malignant neoplasm of esophagus, unspecified; C78.7 Secondary malignant neoplasm of liver and intrahepatic bile duct; D63.0 Anemia in neoplastic disease; E87.6 Hypokalemia; E87.2 Acidosis; E27.40 Unspecified adrenocortical insufficiency; I31.3 Pericardial effusion (noninflammatory); Z66 Do not resuscitate; Z51.5 Encounter for palliative care; R59.0 Localized enlarged lymph nodes; T45.1X5A Adverse effect of antineoplastic and immunosuppressive drugs, initial encounter; R09.02 Hypoxemia; I11.9 Hypertensive heart disease without heart failure; I25.10 Atherosclerotic heart disease of native coronary artery without angina pectoris; E78.5 Hyperlipidemia, unspecified; E66.9 Obesity, unspecified; Z68.29 Body mass index [BMI] 29.0-29.9, adult; I99.8 Other disorder of circulatory system; K59.00 Constipation, unspecified; Z87.891 Personal history of nicotine dependence; Z79.899 Other long term (current) drug therapy
CPT/HCPCS: 36415; 36600; 71045; 71046; 71250; 71275; 74174; 80048; 80048 91; 80053; 80202; 81003; 82378; 82533 91; 82803; 83605; 83880; 84439; 84443; 84484; 85025; 85027; 85610; 85730; 87040; 87070; 87205; 87493; 87641; 93005; 93306; 94799; 99281; 99285; J1160; J2270; J2543; J3370; J7030; J7050; J7120; J7512

== ENCOUNTER 2017-07-24 13:00 | Emergency (ER) | payer OTHER ==
[~2017-07-24] VITALS: Ht 175.3 cm; Wt 83.1 kg
[~2017-07-24 13:00] MED LIST changes: +ASPIR-LOW81 MG PO; +GABAPENTIN100 MG PO; +HYOSCYAMINE0.125 M2 PO; +KEYTRUDA IV; +LEVAQUIN750 MG PO; +LOPRESSOR25 MG PO; +LORAZEPAM0.5 MG PO; +MORPHINE CON20 MG/M1 PO; +NEURONTIN300 MG PO; +PREDNISONE10 MG PO
[2017-07-24 13:59] LABS: BASOPHIL (%) 0.4 % (0-1); BASOPHIL COUNT 0.1 K/uL (0-0.1); EOSINOPHIL (%) 0.5 % (0-5); EOSINOPHIL COUNT 0.1 K/uL (0-0.3); HEMATOCRIT 37.5 % (38.0-50.0); HEMOGLOBIN 12.3 G/DL (12.5-16.6); IMMATURE GRANULOCYTE (%) 0.6 % (0.0-0.7); LYMPHOCYTE (%) 3.4 % (15-42); LYMPHOCYTE COUNT 0.7 K/uL (1.0-2.8); MCH 28.6 PG (29.0-34.0); MCHC 32.8 G/DL (30.0-36.0); MCV 87.2 FL (86-99); MONOCYTE (%) 3.8 % (3-12); MONOCYTE COUNT 0.8 K/uL (0-0.8); NEUTROPHIL (%) 91.3 % (45-76); NEUTROPHIL COUNT 19.2 K/uL (1.8-6.4); NRBC (%) 0.1 /100 WBC (0-0); PLATELET COUNT 232 K/uL (156-360); RBC DIS.WIDTH-CV 19.8 % (11.8-14.6); RBC DIS.WIDTH-SD 59.7 % (39-53); WHITE BLOOD COUNT 21.1 K/uL (4.1-10.2)
[2017-07-24 14:08] LABS: ALBUMIN 2.9 g/dL (3.2-4.8); CHLORIDE 106 mEq/L (99-109); POTASSIUM 3.9 mEq/L (3.7-5.4); SODIUM 134 mEq/L (136-147)
[2017-07-24 14:10] LABS: GLUCOSE 122 mg/dL (70-99); TOTAL PROTEIN 5.7 g/dL (6.4-8.3)
[2017-07-24 14:12] LABS: TOTAL BILIRUBIN 1.4 mg/dL (0.0-1.0)
[2017-07-24 14:14] LABS: ALKALINE PHOSPHATASE 1698 IU/L (3-129); CREATININE 2.1 mg/dL (0.6-1.3); GFR ESTIMATE (CALCULATED) 33 mL/min/ (58.99-99999)
[2017-07-24 14:15] LABS: UREA NITROGEN (BUN) 51 mg/dL (9-23)
[2017-07-24 14:16] LABS: AST (GOT) 102 IU/L (2-34)
[2017-07-24 14:17] LABS: ALT (GPT) 33 IU/L (3-49)
[2017-07-24] MEDS ORDERED: LEVAQUIN750 MG PO (15:57)
[2017-07-24 17:53] VITALS: BP 121/77
== END 2017-07-24 17:58 | disposition home or self-care (01) ==
LOC: EME 13:00
PROVIDERS: Nurse Practitioner Family
DX: J18.9 Pneumonia, unspecified organism (principal); C78.7 Secondary malignant neoplasm of liver and intrahepatic bile duct; K92.2 Gastrointestinal hemorrhage, unspecified; R18.8 Other ascites; I10 Essential (primary) hypertension; Z92.21 Personal history of antineoplastic chemotherapy; Z87.891 Personal history of nicotine dependence; Z85.89 Personal history of malignant neoplasm of other organs and systems; Z95.9 Presence of cardiac and vascular implant and graft, unspecified
CPT/HCPCS: 71045; 74176; 80048; 80053; 83605; 85025; 85027; 86850; 86900; 86901; 87040; 93005; 99281; 99285; J1956; J7030